=== PATIENT | male | born 1965 | race Caucasian/White ===

== ENCOUNTER 2022-08-24 15:53 | Outpatient (REF) | payer BC, SELFPAY ==
--- NOTE | 2022-08-24 15:00 | SKI_PTH ---
PATIENT: Vin Parks LOC: [facility] U#:[id number] AGE/SX: 56/M ROOM: RE08/24/[address]: Sanju Grove MD : 1965 BED: DIS: 08/24/2022 SPEC #: [id number] RECD: 08/24/22 18:15 STATUS: KYE REQ #: [id number] KAYY: 08/24/22 15:[address]: Sanju Grove DEPT: Surgical Specimen RECD BY: Elza Williamson ENTERED: 08/24/22 18:15 SP TYPE: BARTOLOME GAMBINO DR: Levi Bhardwaj Tissues: 1 - SKIN BIOPSY(SHAVE/PUNCH) Procedures: SKIN LEVEL 4 Comments: [id number]
== END 2022-08-24 15:54 | disposition home or self-care (01) ==
LOC: LBN 15:53
PROVIDERS: PCP Family Medicine; Visit Provider Otolaryngology
DX: L57.0 Actinic keratosis (principal)
CPT/HCPCS: 88305

== ENCOUNTER 2024-12-04 07:45 | Day surgery (SDC) | payer OTHER, SELFPAY ==
[2024-12-04] VITALS (7 sets, daily range): BP systolic 85–115; BP diastolic 47–79; PULSE 58–64; RESP 12–17; TEMP 36.4–36.6; O2SAT 93–100; BMI 33.7
[2024-12-04] MEDS: Lactated Ringers 1,000 ML 75 ML IV (08:30)
--- NOTE | 2024-12-04 10:08 | ANES.PREOP_ITS ---
General Info Date of Service Date Performed: 12/04/24 Height: 5 ft 11 in Weight: 109.6 kg Body Mass Index (BMI): 33.7 Surgical Procedure: Operation Date: 12/04/24 09:25 Proposed Procedure Side Surgeon p Inferior Turbinoplasty, Lateralization of Inferior Turbinates Bilateral Sanju Grove MD Meds Allergies and Home Medications Allergies Allergy/AdvReac Type Severity Reaction Status Date / Time Penicillins Allergy Unknown Verified 12/04/24 08:14 Home Medication ?Medication ?Instructions ?Recorded cetirizine 10 mg tablet (All Day 10 mg PO DAILY PRN 08/06/22 Allergy (cetirizine)) fluticasone propionate 50 1 spray intranasal DAILY 08/06/22 mcg/actuation nasal spray,suspension (Allergy Relief (fluticasone)) olopatadine 0.2 % eye drops 1 drp ophthalmic (eye) DAILY 08/06/22 pantoprazole 40 mg tablet,delayed 40 mg PO DAILY 08/06/22 release testosterone cypionate 200 mg/mL 200 mg IM Q3W 08/06/22 intramuscular oil Current Visit Medications: Current Medications Generic Name Dose Route Start Last Admin Trade Name Freq PRN Reason Stop Dose Admin Ringer's Solution 1,000 mls @ 75 mls/hr 12/04/24 06:00 12/04/24 08:30 IV 12/04/24 23:59 75 mls/hr INFUSION CHASIDY Administration Clindamycin Phosphate/Dextrose 900 mg in 50 mls @ 50 mls/hr 12/04/24 06:00 Cleocin In D5w IVPB 12/04/24 23:59 PREOP CHASIDY IV Miscellaneous Supplies 1 each 12/04/24 06:00 Iv Access IV 12/04/24 23:59 DIRECTED CHASIDY Sodium Chloride 0 ml 12/04/24 06:00 Normal Saline Flush 10 Ml Syr IV 12/04/24 23:59 PRN PRN Sodium Chloride 0 ml 12/04/24 06:00 Normal Saline 10 Ml Vial IJ 12/04/24 23:59 DIRECTED PRN Sterile Water 0 ml 12/04/24 06:00 Water,Injection,Sterile 10 Ml Vial IJ 12/04/24 23:59 DIRECTED PRN PFSH Active Problems Active Problems: Problem Status Onset Code Pain in left foot Acute M79.672 Plantar verruca Acute B07.0 Chronic rhinitis Acute J31.0 Lesion of left ear Acute H93.92 Medical History Medical History Bilateral knee pain Change in hearing Enlarged thyroid gland Globus sensation Hypogonadism male Tinnitus Testicular hypofunction Pain Obesity Need for tetanus booster Mixed hyperlipidemia Hypo-osmolality and hyponatremia Hypertrophic condition of skin Hypersomnia Headache Hard corn [place] of toe Allergic rhinitis Actinic keratosis Surgical History Surgical History H/O neck surgery Chiari malformation repair H/O brain surgery 2016-pt. states he cant look up and is dizzy a lot but it is a side effect of surgery H/O colonoscopy 12/26/2018 Tobacco Smoking/Tobacco Use Status: Former Tobacco Use Passive smoking exposure: No Alcohol Alcohol Intake: current Alcohol intake frequency: a few times a week Alcohol type: beer and wine Substance Use Substance use: Never Vital Signs and Lab Results Vital Signs Most Recent Vital Signs in EMR: Most Recent Vital Signs Temp Pulse Resp BP Pulse Ox 36.4 C L 59 L 16 111/79 99 12/04/24 08:00 12/04/24 08:00 12/04/24 08:00 12/04/24 08:00 12/04/24 08:00 Lab Results Blood Type / Crossmatch: No Data to Display Complete Blood Count: No Data to Display Complete Metabolic Panel: No Data to Display Liver Function Panel: No Data to Display Coagulation Panel: No Data to Display Cardiac Panel: No Data to Display Arterial Blood Gas: No Data to Display Venous Blood Gas: No Data to Display Pancreas Panel: No Data to Display Thyroid Panel: No Data to Display Infectious Disease: No Data to Display Blood Cultures: No Data to Display Toxicology Panel: No Data to Display Anesthesia Assessment and Plan Anesthesia History Personal History: No History of Anesthesia Complications Family History: No Family History of Anesthesia Complications Exercise Tolerance Exercise Tolerance: Metabolic Equivalents>4 Pertinent Negatives Pertinent Negatives: No Major Cardiovascular Symptoms or Complaints, No Major Pulmonary Symptoms or Complaints and No History of CVA/TIA Cardiac & Pulmonary Exam Cardiac Exam: Normal S1/S2 Heart Sounds Pulmonary Exam: Clear Bilateral Breath Sounds and No cough or Cold Implantable Cardiac Device Does patient have a Pacemaker or an ICD?: No Airway Exam Known Difficult Airway: No Mallampati Class: 2 Mouth Opening: Normal (> 3cm) Thyromental Distance: Greater than 3 cm Neck Range of Motion: Limited ROM Neck Circumference: Thick Teeth Condition: Normal Dentition ASA Classification ASA Score: ASA 2 Emergency Case?: No NPO Status NPO Status: NPO Clears >2 hours, Solids >8 hours Anesthesia Plan Resuscitation Status: Full Code Anesthesia Technique: General Anesthesia Airway Planned: Endotracheal Tube Monitors Used: Standard Monitors and SedLine
--- NOTE | 2024-12-04 10:16 | W.PM.DSUDISC ---
Date of service: 12/04/24 Discharge Plan Disposition Patient Disposition: Home Condition: Good Discharge Details Reason For Visit: Bilateral inferior turbinoplasty Attending Provider: Sanju Grove Primary Care Provider: Levi Bhardwaj Home Meds and New Rx's Prescriptions: No Action cetirizine [All Day Allergy (cetirizine)] 10 mg tablet 10 mg PO DAILY PRN fluticasone propionate [Allergy Relief (fluticasone)] 50 mcg/actuation spray,suspension 1 spray intranasal DAILY Rx Instructions: administer into each nostril olopatadine 0.2 % drops 1 drp ophthalmic (eye) DAILY pantoprazole 40 mg tablet,delayed release (DR/EC) 40 mg PO DAILY testosterone cypionate 200 mg/mL oil 200 mg IM Q3W Discharge Instructions Additional Instructions: My cell phone number is [phone]. Please call with any questions or concerns. If you are unable to reach me and you feel it is an emergency, please proceed to the emergency room or call 911 No blowing the nose for a week. After that you can start blowing lightly and escalate your blowing from there. If it causes bleeding you are blowing too hard. You may sniff back. You may shower as needed Hold the Flonase for the next 2 weeks, and then you may resume it if you feel you need it Ibuprofen or Tylenol or both for pain control. Sneeze through your mouth say achoo. No driving for 72 hours You may return to work on Wednesday but no heavy lifting and no using dangerous equipment No dietary limitations Referrals: Sanju Grove MD [ [facility] STAFF PHYSICIAN] - (1 month, please call for appointment prior to patient's departure) Discharge Orders Discharge Orders: Discharge Order (Routine); Ordered 12/04/24 Ordered By: Sanju Grove
--- NOTE | 2024-12-04 10:20 | W.PM.OP ---
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 He does not have any significant nasal deviation but does have hypertrophic mucosa along his inferior turbinates. Options were explained the patient regarding further management. He elected undergo the above procedure. Consent was filled out and signed prior to the procedure. H&P was reviewed. There have been no changes. All questions were answered prior to the procedure. Findings: Bilateral hypertrophic inferior turbinates, mucosal, no significant septal deviation, nasopharynx unremarkable Procedure Description: After obtaining an adequate level of general endotracheal anesthesia the patient was positioned in supine position and prepped and draped in appropriate fashion 1% lidocaine with 1/100,000 epinephrine was injected in the inferior turbinates bilaterally. Cocaine soaked nasal pledgets were then placed along the inferior turbinates for 5 minutes after which point they were removed. Electrocautery suction tip catheter set on 15 W coagulation was used to ablate the inferiomedial mucosa along the inferior turbinates bilaterally and then a Mcduffie elevator used to lateralize the turbinates. The Mcduffie elevator could then be passed without friction from the anterior nares to the posterior pharynx. This been accomplished bilaterally, and after ensuring adequate hemostasis, the patient was awakened and transported to recovery room in stable condition. I was present throughout the entire case. Date of Procedure: 12/04/24
[2024-12-04] MEDS: CLINDAMYCIN 900 MG/50 ML BAG 50 MG IVPB (10:50)
[2024-12-04] MEDS: Cocaine Nasal 4% 4 ML BTL (11:02)
[2024-12-04] MEDS: Lidocaine 1% Multi-Dose W/EPI 1/100,000 50 ML VIAL (11:02)
--- NOTE | 2024-12-04 11:09 | PDOC.DSDIS_ITS ---
Date of service: 12/04/24 Discharge Plan Disposition Patient Disposition: Home Condition: Good Discharge Details Reason For Visit: Bilateral inferior turbinoplasty Attending Provider: Sanju Grove Primary Care Provider: Levi Bhardwaj Home Meds and New Rx's Prescriptions: No Action cetirizine [All Day Allergy (cetirizine)] 10 mg tablet 10 mg PO DAILY PRN fluticasone propionate [Allergy Relief (fluticasone)] 50 mcg/actuation spray,suspension 1 spray intranasal DAILY Rx Instructions: administer into each nostril olopatadine 0.2 % drops 1 drp ophthalmic (eye) DAILY pantoprazole 40 mg tablet,delayed release (DR/EC) 40 mg PO DAILY testosterone cypionate 200 mg/mL oil 200 mg IM Q3W Discharge Instructions Additional Instructions: My cell phone number is [phone]. Please call with any questions or concerns. If you are unable to reach me and you feel it is an emergency, please proceed to the emergency room or call 911 No blowing the nose for a week. After that you can start blowing lightly and escalate your blowing from there. If it causes bleeding you are blowing too hard. You may sniff back. You may shower as needed Hold the Flonase for the next 2 weeks, and then you may resume it if you feel you need it Ibuprofen or Tylenol or both for pain control. Sneeze through your mouth say achoo. No driving for 72 hours You may return to work on Wednesday but no heavy lifting and no using dangerous equipment No dietary limitations Referrals: Sanju Grove MD [ [facility] STAFF PHYSICIAN] - (1 month, please call for appointment prior to patient's departure) Discharge Orders Discharge Orders: Discharge Order (Routine); Ordered 12/04/24 Ordered By: Sanju Grove
--- NOTE | 2024-12-04 11:42 | W.ANESPOSTOP ---
Postoperative Evaluation Date, Time and Location Date Performed: 12/04/24 Time Performed: 11:43 Patient Location: PACU Vital Signs Most Recent Imported Vital Signs: Most Recent Vital Signs Temp Pulse Resp BP Pulse Ox 36.6 C 63 15 115/67 94 12/04/24 11:38 12/04/24 11:38 12/04/24 11:38 12/04/24 11:38 12/04/24 11:38 Pain Score Most Recent Pain Score: Most Recent Pain Score Pain Level 0 12/04/24 11:38 Assessment Mental Status: Arousable with meaningful communication Airway and Respiratory Function: Patent airway with normal (patient baseline) respiratory exam Cardiovascular Function: Hemodynamically Stable Hydration Status: Adequately Hydrated Nausea & Vomiting: No Nausea or Vomiting Pain: Pt. Denies Any Pain Peripheral Nerve Block: Patient did not receive a nerve block Teaching Patient Teaching: Discussed Safe Use of Pain Medication Given Recent Anesthesia and Discussed Safe Use of Pain Medication Given Likely or Known ELIDA
== END 2024-12-04 12:40 | disposition home or self-care (01) ==
PROVIDERS: PCP Family Medicine; Visit Provider Otolaryngology
PROC: (CPT 30930; principal; 2024-12-04 09:15)
DX: J34.3 Hypertrophy of nasal turbinates (principal); J31.0 Chronic rhinitis; Z79.899 Other long term (current) drug therapy
CPT/HCPCS: 30802; J0737; J1100; J1805; J2003; J2004; J2250; J2405; J2704; J3010